=== PATIENT | female | born 1975 | race Caucasian/White ===

== ENCOUNTER 2019-05-20 11:41 | Emergency (ER) | payer MEDICAID ==
[~2019-05-20] VITALS: Ht 157.5 cm; Wt 81.2 kg
[2019-05-20 12:00] VITALS: BP 122/76
--- NOTE | 2019-05-20 12:08 | NUR ---
PT AMBULATORY TO RME FROM TRIAGE WITH STEADY GAIT. NAD NOTED. RESP REGULAR AND UNLABORED. CMS INTACT. NEURO INTACT. 43 Y/O F REPORTS "LOW BACK PAIN AND NECK PAIN, WORSENING." DENIES INJURY OR TRAUMA. JONA HOFF AT BEDSIDE FOR EVALUATION. CALL LIGHT IN REACH. FALL PRECAUTIONS IN PLACE.
[2019-05-20] MEDS ORDERED: CYCLOBENZAPRINE 10 MG TABLET PO ONE (13:00)
[2019-05-20] MEDS ORDERED: KETOROLAC 30 MG/1 ML IM ONE (13:00)
[2019-05-20] MEDS ORDERED: CYCLOBENZAPRINE 10 MG TABLET ONE (13:02)
[2019-05-20] MEDS ORDERED: KETOROLAC 30 MG/1 ML ONE (13:02)
--- NOTE | 2019-05-20 13:05 | NUR ---
INTO MEDICATE PT, PT REQUESTING TO LEAVE, REFUSES MEDICATION, JONA PA TO BEDSIDE TO DISCUSS WITH PT. PT TO BE DISCHARGED PER REQUEST
== END 2019-05-20 13:15 | disposition home or self-care (01) ==
LOC: ED 13:09
DX: S39.012A Strain of muscle, fascia and tendon of lower back, initial encounter (principal); S16.1XXA Strain of muscle, fascia and tendon at neck level, initial encounter; F17.200 Nicotine dependence, unspecified, uncomplicated; X58.XXXA Exposure to other specified factors, initial encounter; Y93.89 Activity, other specified; Y92.89 Other specified places as the place of occurrence of the external cause; Y99.8 Other external cause status
CPT/HCPCS: 99282

== ENCOUNTER 2019-06-09 18:57 | Emergency (ER) | payer MEDICAID ==
[~2019-06-09] VITALS: Ht 160 cm; Wt 85.0 kg
--- NOTE | 2019-06-09 19:45 | NUR ---
Patient presents to ER c/o CP, epigastric pain, and nausea since 0300. Patient states she was seen at [facility] for the CP earlier but the other symptoms developed after she was discharged. Patient states her kicked her out of the house so she is now homeless and she hasn't done meth in three days. Patient is in NAD. Respirations even and unlabored. Nausea meds offered; patient refused. Refusing to provide urine sample.
[2019-06-09 19:50] LABS: BASOPHILS # (AUTO) 0.03 x10^3/uL (0-0.1); BASOPHILS % (AUTO) 0 % (0-1); EOSINOPHILS # (AUTO) 0.16 x10^3/uL (0-0.4); EOSINOPHILS % (AUTO) 2 % (1-7); LYMPHOCYTES # (AUTO) 1.33 x10^3/uL (1-3.4); LYMPHOCYTES % (AUTO) 14 % (22-44); MD NO; MEAN CORPUSCULAR HGB CONC 31.6 g/dL (32.4-35.8); MEAN CORPUSCULAR VOLUME 82.2 fL (80-100); MEAN PLATELET VOLUME 7.8 fL (7.4-10.4); MONOCYTES # (AUTO) 0.37 x10^3/uL (0.2-0.8); MONOCYTES % (AUTO) 4 % (2-9); NEUTROPHILS # (AUTO) 7.64 x10^3/uL (1.8-6.8); NEUTROPHILS % (AUTO) 80 % (42-75); PLATELET COUNT 286 x10^3/uL (130-400); RED BLOOD COUNT 5.23 x10^6/uL (3.82-5.3); RED CELL DISTRIBUTION WIDTH 16.4 % (9.6-15.2)
[2019-06-09 19:57] LABS: ALANINE AMINOTRANSFERASE 12 U/L (12-78); ALBUMIN 3.3 g/dL (3.4-5.0); ANION GAP 5 mmol/L (5-15); CALCIUM 8.3 mg/dL (8.5-10.1); CHLORIDE 109 mmol/L (98-107); CREATININE 0.88 mg/dL (0.55-1.02)
[2019-06-09 20:02] LABS: ALKALINE PHOSPHATASE 75 U/L (45-117); BILIRUBIN,TOTAL 0.3 mg/dL (0.2-1.0); TOTAL PROTEIN 7.3 g/dL (6.4-8.2); TROPONIN I < 0.015 ng/mL (0.000-0.045)
[2019-06-09] MEDS ORDERED: ONDANSETRON ODT 4 MG ONE (20:40)
[2019-06-09 20:52] VITALS: BP 108/58
--- NOTE | 2019-06-09 20:53 | NUR ---
Discharge papers provided to patient. All questions and concerns addressed. Patient vomited all over the ground. Provided meds and waiting for PO challenge.
[2019-06-09] MEDS ORDERED: ONDANSETRON ODT 4 MG PO ONE (21:00)
--- NOTE | 2019-06-09 21:45 | NUR ---
Discharge in structions given. All questions and concerns addressed. Patient ambulatory with a steady gait. Belongings with patient.
== END 2019-06-09 21:46 | disposition home or self-care (01) ==
LOC: ED 19:20
DX: R10.84 Generalized abdominal pain (principal); R07.89 Other chest pain; Z59.0 Homelessness
CPT/HCPCS: 36415; 71045; 80053; 83690; 84484; 84703; 85025; 99285; Q0162

== ENCOUNTER 2019-06-19 17:19 | Emergency (ER) | payer MEDICAID ==
[~2019-06-19] VITALS: Ht 160 cm; Wt 86.7 kg
[2019-06-19 17:26] VITALS: BP 118/83
--- NOTE | 2019-06-19 17:35 | NUR ---
CASE PRESENTED TO LUIS EDUARDO SHAIKH. NEEL EVALUATING PATIENT IN TRIAGE ROOM. PT EDUCATED REGARDING CORONAVIRUS CONCERNS AND IS TO BE DISCHARGED. PT IN NO DISTRESS AND HAS NO SYMPTOMS RELATED TO CORONAVIRUS, BUT DOES ENDORSE MENSTRUAL CRAMPS SECONDARY TO MONTHLY CYCLEY STARTING TODAY.
== END 2019-06-19 18:04 | disposition home or self-care (01) ==
LOC: ED 18:01
DX: N94.6 Dysmenorrhea, unspecified (principal); R10.9 Unspecified abdominal pain; F17.200 Nicotine dependence, unspecified, uncomplicated
CPT/HCPCS: 99281

== ENCOUNTER 2020-05-29 14:04 | Emergency (ER) | payer MEDICAID ==
[~2020-05-29] VITALS: Ht 162.6 cm; Wt 95.4 kg
[2020-05-29 14:13] VITALS: BP 183/88
--- NOTE | 2020-05-29 15:13 | NUR ---
pt to room from lobby
--- NOTE | 2020-05-29 15:53 | NUR ---
BREAK RN: LUIS EDUARDO OTTO IN ROOM. NO ACUTE DISTRESS NOTED. WILL CONTINUE TO MONITOR WHILE PRIMARY RN IS ON BREAK.
== END 2020-05-29 16:30 | disposition home or self-care (01) ==
LOC: ED 16:10
DX: F32.9 Major depressive disorder, single episode, unspecified (principal); F15.10 Other stimulant abuse, uncomplicated; F17.210 Nicotine dependence, cigarettes, uncomplicated
CPT/HCPCS: 99281